=== PATIENT | male | born 1980 | race Hispanic/Latino ===

== ENCOUNTER 2018-05-12 12:10 | Emergency (ER) | payer OTHER ==
[~2018-05-12] VITALS: Ht 180.3 cm; Wt 99.8 kg
[2018-05-12 12:50] LABS: PLATELET COUNT 310 K/uL (142-355)
[2018-05-12 12:54] LABS: POTASSIUM 4.5 mmol/L (3.6-5.2); SODIUM 141 mmol/L (136-145)
[2018-05-12 14:19] VITALS: BP 120/71; TEMP 97.8
== END 2018-05-12 14:28 | disposition home or self-care (01) ==
LOC: ED 12:10
PROVIDERS: Family Medicine
DX: I47.1 Supraventricular tachycardia (principal)
CPT/HCPCS: 36415; 80053; 80307; 81000; 82550; 84484; 85027; 93005; 96374; 99285; J0153

== ENCOUNTER 2021-05-15 08:10 | Outpatient (CLI) | payer OTHER ==
[2021-05-15 08:38] LABS: PLATELET COUNT 285 K/uL (142-355)
[2021-05-15 08:49] LABS: POTASSIUM 4.2 mmol/L (3.6-5.2)
== END 2021-05-15 19:10 | disposition home or self-care (01) ==
LOC: LABW 08:10
PROVIDERS: ATTEND Internal Medicine Cardiovascular Disease
DX: Z79.899 Other long term (current) drug therapy (principal)
CPT/HCPCS: 36415; 80053; 80061; 85027